=== PATIENT | female | born 1995 | race American Indian/Alaskan Native ===

== ENCOUNTER 2017-07-12 19:16 | Emergency (ER) | payer OTHER ==
[2017-07-12 20:18] VITALS: BP 102/70; PULSE 77; RESP 17; TEMP 98.5; O2SAT 100
--- NOTE | 2017-07-12 23:00 | ED PDOC ---
HPI: CCC, URI, Sore Throat Time Seen by Provider: 07/12/17 20:30 Chief Complaint (Nursing): Flu-like Symptoms Chief Complaint (Provider): Flu History Per: Patient Additional Complaint(s): Pt c/o cough, sore throat, bodyaches and fever. Pt states she's been taking thermaflu w/ no relief. Past Medical History Vital Signs: Last Vital Signs Temp 98.5 F 07/12/17 20:15 Pulse 77 07/12/17 20:15 Resp 17 07/12/17 20:15 BP 102/70 07/12/17 20:15 Pulse Ox 100 07/12/17 20:15 - Home Medications Home Medications: Ambulatory Orders Medication Instructions Recorded Ibuprofen [Motrin] 600 mg PO Q6 #20 tab 07/12/17 Oseltamivir [Tamiflu] 75 mg PO BID 5 Days cap 07/12/17 - Allergies Allergies/Adverse Reactions: Allergies Allergy/AdvReac Type Severity Reaction Status Date / Time No Known Allergies Allergy Verified 07/12/17 22:30 - ECG O2 Sat by Pulse Oximetry: 100 Disposition - Clinical Impression Clinical Impression: Influenza-like symptoms - Disposition Condition: STABLE Prescriptions: Ibuprofen [Motrin] 600 mg PO Q6 #20 tab Oseltamivir [Tamiflu] 75 mg PO BID 5 Days cap Instructions: Influenza (ED) Forms: [facility] (German), [facility] ED School/Work Excuse
== END 2017-07-12 23:23 | disposition home or self-care (01) ==
LOC: H.ER 19:16
DX: R50.9 Fever, unspecified (principal); R05 Cough

== ENCOUNTER 2017-10-26 20:54 | Emergency (ER) | payer OTHER ==
[2017-10-26] MEDS ORDERED: Albuterol-Ipratrop 3 mg / 0.5 (3 ml) UD IH STA (21:25)
[2017-10-26] MEDS ORDERED: guaiFENesin 200 mg/10 ml Syrup UD PO ONE (21:25)
[2017-10-26] MEDS ORDERED: guaiFENesin 100 mg/5 ml Syrup UD ONE (21:37)
--- NOTE | 2017-10-26 21:54 | ED PDOC ---
HPI: General Adult Time Seen by Provider: 10/26/17 21:12 Chief Complaint (Nursing): Cough, Cold, Congestion Chief Complaint (Provider): Cough, Cold, Congestion History Per: Patient History/Exam Limitations: no limitations Onset/Duration Of Symptoms: Days Additional Complaint(s): 22 year old female presents to the emergency department with a complaint of a cough that started 1 week ago. States it initially started as a dry cough and became productive. Reports symptoms started while she was on vacation in [place] and returned on Tuesday. States chest pain at the mid sternum region started on Tuesday and worsens with deep breathing. Today she tried to walk her dog but felt shortness of breath. Associated with tactile fevers at night with chills. denies nausea, vomiting, diarrhea, sick contacts, leg pain or swelling, hospitalization, surgeries, ocp use, smoking, or history of prior blood clots. Past Medical History Reviewed: Historical Data, Nursing Documentation, Vital Signs Vital Signs: Last Vital Signs Temp 98.8 F 10/26/17 21:05 Pulse 109 H 10/26/17 21:05 Resp 16 10/26/17 21:05 BP 115/76 10/26/17 21:05 Pulse Ox 97 10/26/17 22:00 - Medical History PMH: No Chronic Diseases - Surgical History Surgical History: No Surg Hx - Family History Family History: States: Unknown Family Hx - Social History Current smoker - smoking cessation education provided: No Alcohol: None Drugs: Denies - Home Medications Home Medications: Ambulatory Orders Medication Instructions Recorded Ibuprofen [Motrin] 600 mg PO Q6 #20 tab 07/12/17 Oseltamivir [Tamiflu] 75 mg PO BID 5 Days cap 07/12/17 Albuterol 0.083% [Albuterol 3 ml IH Q4 #100 neb 10/26/17 Sulfate 3 Ml] Guaifenesin [Adult Tussin Chest 200 mg PO Q6H PRN #200 ml 10/26/17 Congestion] Nebulizer [Aeroeclipse II] 1 each MC DAILY #1 each 10/26/17 - Allergies Allergies/Adverse Reactions: Allergies Allergy/AdvReac Type Severity Reaction Status Date / Time No Known Allergies Allergy Verified 10/26/17 21:05 Review of Systems ROS Statement: Except As Marked, All Systems Reviewed And Found Negative (As per HPI, otherwise negative) Constitutional: Positive for: Fever, Chills. Negative for: Other (Sick contacts , hospitalization, surgery, smoking, opiate use, or prior hx of blood clots) Cardiovascular: Positive for: Chest Pain (mid sternum region) Respiratory: Positive for: Cough, Shortness of Breath, Sputum Gastrointestinal: Negative for: Nausea, Vomiting, Diarrhea Musculoskeletal: Negative for: Leg Pain (swelling) Physical Exam - Reviewed Nursing Documentation Reviewed: Yes Vital Signs Reviewed: Yes - Physical Exam Comments: GENERAL APPEARANCE: Patient is awake, alert, oriented x 3, in no acute distress. SKIN: Warm, dry; (-) cyanosis. EYES: (-) conjunctival pallor. ENMT: Mucous membranes moist. Airway patent: (-) stridor. Pharynx: (-) swelling, (-) erythema, (-) exudate. NECK: (-) tenderness, (-) stiffness, (-) lymphadenopathy. CHEST AND RESPIRATORY: (-) rhonchi, (-) rales, (-) wheezes, (-) pleural rub; breath sounds equal bilaterally. HEART AND CARDIOVASCULAR: (-) irregularity; (-) murmur, (-) gallop. ABDOMEN AND GI: Soft; (-) tenderness. EXTREMITIES: (-) deformity; (-) edema. NEURO AND PSYCH: Mental status as above. Cranial nerves grossly intact; strength symmetric. - Laboratory Results Result Diagrams: 10/26/17 21:52 10/26/17 21:52 - ECG O2 Sat by Pulse Oximetry: 97 (RA) Pulse Ox Interpretation: Normal Medical Decision Making Medical Decision Making: Time: 2123 Initial impression: Bronchitis Initial plan:EKG CMP Troponin I Urine Preg CBC w/ diff D Dimer (COAG) PTT & Prothrombin Chest x-ray Nebulizer treatment Duoneb 3 ml IH Robitussin 200 mg PO Reevaluation EKG: NSR at 84 bpm, (-) acute ST changes, as read by MELANY. CXR: NAD, as read by MELANY Urine hCG negative Labs review : Troponin negative, d-dimer negative, white blood cell count within normal limits, rest of the labs are within normal limits. On reevaluation, patient is resting in bed comfortably in no acute distress. Patient is speaking in full sentences. Diagnostic results discussed with the patient in great detail. Diagnosis bronchitis discussed with the patient. Advised to follow up with primary care physician in 1-2 days without fail. Advised to take medication as prescribed. Return to the emergency room at any time for any new or worsening symptoms. Patient states she fully agrees with and understands discharge instructions. States that she agrees with the plan and disposition. Verbalized and repeated discharge instructions and plan. I have given the patient opportunity to ask any additional questions. Scribe Attestation: Documented by Brynn Nunez, acting as a scribe for Alka Dodson PA-C. Provider Scribe Attestation: All medical record entries made by the Scribe were at my direction and personally dictated by me. I have reviewed the chart and agree that the record accurately reflects my personal performance of the history, physical exam, medical decision making, and the department course for this patient. I have also personally directed, reviewed, and agree with the discharge instructions and disposition. Disposition - Clinical Impression Clinical Impression: Acute bronchitis - Patient ED Disposition Is Patient to be Admitted: No Counseled Patient/Family Regarding: Studies Performed, Diagnosis, Need For Followup, Rx Given - Disposition Disposition: Routine/Home Disposition Time: 23:00 Condition: STABLE Additional Instructions: Thank you for letting us take care of you today. You were treated for acute bronchitis. The emergency medical care you received today was directed at your acute symptoms. If you were prescribed any medication, please fill it and take as directed. It may take several days for your symptoms to resolve. Return to the Emergency Department if your symptoms worsen, do not improve, or if you have any other problems. Please contact your doctor in 2 days for re-evaluation and follow up. Bring any paperwork you were given at discharge with you along with any medications you are taking to your follow up visit. Our treatment cannot replace ongoing medical care by a primary care provider (PCP) outside of the emergency department. Thank you for allowing the [facility] team to be part of your care today. If you had an X-Ray : A Radiologist will review the ED reading if any change in treatment is needed we will contact you. 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
[2017-10-26 21:55] LABS: BASO % 0.5 % (0.0-2.0); EOS # 0.2 K/uL (0.0-0.7); EOS % 2.2 % (0.0-4.0); HEMOGLOBIN 12.2 g/dL (12.0-16.0); LYMPH # 1.4 K/uL (1.0-4.3); LYMPH % 15.8 % (20.0-40.0); MEAN CELL VOLUME 85.2 fl (81.0-99.0); MEAN CORPUSCULAR HGB CONC 35.2 g/dL (33.0-37.0); MEAN PLATELET VOLUME 8.8 fl (7.2-11.7); MONO # 0.7 K/uL (0.0-0.8); NEUT # 6.6 K/uL (1.8-7.0); NEUT % 73.5 % (50.0-75.0); NRBC % 0.1 % (0.0-0.0); RBC 4.09 Mil/uL (3.80-5.20); RED CELL DISTRIBUTION WIDTH 14.3 % (11.5-14.5)
[2017-10-26 22:08] LABS: INR 1.3 (0.9-1.2); PARTIAL THROMBOPLASTIN TIME 32.3 Seconds (25.6-37.1); PROTHROMBIN TIME 13.9 Seconds (9.8-13.1)
[2017-10-26 22:37] LABS: ALB/GLOB RATIO 1.1 (1.0-2.1); ALBUMIN 3.9 g/dL (3.5-5.0); ALT/SGPT 35 U/L (9-52); AST/SGOT 33 U/L (14-36); BLOOD UREA NITROGEN 7 mg/dl (7-17); CALCIUM 9.2 mg/dL (8.4-10.2); GFR AFRICAN-AMERICAN > 60; GFR NON-AFRICAN AMERICAN > 60
[2017-10-26 23:18] VITALS: BP 126/81; PULSE 88; RESP 18; TEMP 98.5; O2SAT 100
--- NOTE | 2017-10-27 07:55 | RAD ---
HISTORY: cough COMPARISON: No prior. TECHNIQUE: Chest PA and lateral FINDINGS: LUNGS: No active pulmonary disease. PLEURA: No significant pleural effusion identified. No pneumothorax apparent. CARDIOVASCULAR: Normal. OSSEOUS STRUCTURES: No significant abnormalities. VISUALIZED UPPER ABDOMEN: Normal. OTHER FINDINGS: None. IMPRESSION: No acute cardiopulmonary disease appreciated.
--- NOTE | 2017-10-27 11:56 | CARD ---
APPROVED REPORT EKG Measurement Heart [id number] <Conclusion> Normal sinus rhythm Normal ECG
== END 2017-10-26 23:18 | disposition home or self-care (01) ==
LOC: H.ER 20:54
DX: J20.9 Acute bronchitis, unspecified (principal)

== ENCOUNTER 2018-09-08 14:58 | Emergency (ER) | payer OTHER ==
[2018-09-08 15:38] VITALS: BP 100/64; PULSE 64; RESP 18; TEMP 98.2; O2SAT 100
--- NOTE | 2018-09-08 15:53 | ED PDOC ---
HPI: Abdomen Time Seen by Provider: 09/08/18 15:51 Chief Complaint (Nursing): Abdominal Pain Chief Complaint (Provider): abdominal pain History Per: Patient (23 y/o female here for evauation of generalized bloating noted 1 month. Notes intermittent abd pain associated with symptoms and came to ED for evaluation. No D/V/fevers/chills. Is vegan. ) Past Medical History Reviewed: Historical Data, Nursing Documentation, Vital Signs Vital Signs: Last Vital Signs Temp 98.2 F 09/08/18 15:36 Pulse 64 09/08/18 15:36 Resp 18 09/08/18 15:36 BP 100/64 09/08/18 15:36 Pulse Ox 100 09/08/18 15:36 - Family History Family History: States: Unknown Family Hx - Home Medications Home Medications: Ambulatory Orders Medication Instructions Recorded Ibuprofen [Motrin] 600 mg PO Q6 #20 tab 07/12/17 Oseltamivir Cap [Tamiflu] 75 mg PO BID 5 Days cap 07/12/17 Albuterol 0.083% [Albuterol 3 ml IH Q4 #100 neb 10/26/17 Sulfate 3 Ml] Guaifenesin [Adult Tussin Chest 200 mg PO Q6H PRN #200 ml 10/26/17 Congestion] Nebulizer [Aeroeclipse II] 1 each MC DAILY #1 each 10/26/17 Simethicone 125 mg PO QID PRN #28 tab.chew 09/08/18 - Allergies Allergies/Adverse Reactions: Allergies Allergy/AdvReac Type Severity Reaction Status Date / Time No Known Allergies Allergy Verified 09/08/18 15:35 Review of Systems ROS Statement: Except As Marked, All Systems Reviewed And Found Negative Gastrointestinal: Positive for: Abdominal Pain Physical Exam - Reviewed Nursing Documentation Reviewed: Yes Vital Signs Reviewed: Yes - Physical Exam Appears: Positive for: Well, Non-toxic, No Acute Distress Head Exam: Positive for: ATRAUMATIC, NORMAL INSPECTION, NORMOCEPHALIC Skin: Positive for: Normal Color, Warm, DRY Eye Exam: Positive for: EOMI, Normal appearance, PERRL ENT: Positive for: Normal ENT Inspection Neck: Positive for: Normal, Painless ROM Cardiovascular/Chest: Positive for: Regular Rate, Rhythm Respiratory: Positive for: CNT, Normal Breath Sounds Gastrointestinal/Abdominal: Positive for: Normal Exam, Soft Back: Positive for: Normal Inspection Extremity: Positive for: Normal ROM Neurological/Psych: Positive for: Awake, Alert, Normal Tone - Laboratory Results Result Diagrams: 09/08/18 16:25 09/08/18 16:25 Urine POC: Negative - ECG O2 Sat by Pulse Oximetry: 100 - Progress ED Course And Treament: obstructive series: IMPRESSION: Unremarkable radiographs of chest and abdomen. No evidence of mechanical bowel obstruction. Disposition - Clinical Impression Clinical Impression: Abdominal pain in female, Abdominal bloating - Patient ED Disposition Is Patient to be Admitted: No - Disposition Referrals: Isidro Calloway MD [Staff Provider] - Disposition: Routine/Home Disposition Time: 17:03 Condition: FAIR Prescriptions: Simethicone 125 mg PO QID PRN #28 tab.chew PRN Reason: Pain, Moderate (4-7) Instructions: Gas and Bloating Forms: [facility] ED School/Work Excuse
--- NOTE | 2018-09-08 16:51 | RAD ---
Date of service: 09/08/2018 PROCEDURE: Radiographs of the chest and abdomen (obstructive series) HISTORY: abdominal distention COMPARISON: No prior. TECHNIQUE: AP radiograph of the chest, with upright and supine radiographs of the abdomen. 3 views obtained. FINDINGS: CHEST: Lungs: Clear. Cardiovascular: Normal size heart. No pulmonary vascular congestion. No aortic atherosclerotic calcification present Pleura: No pleural fluid. No pneumothorax. Other findings: None. ABDOMEN AND PELVIS: Bowel: Unremarkable bowel gas pattern. No evidence of mechanical obstruction. Free air: None. Bones: Unremarkable. Other findings: None. IMPRESSION: Unremarkable radiographs of chest and abdomen. No evidence of mechanical bowel obstruction.
[2018-09-08 16:52] LABS: SQUAMOUS EPITHIAL 1 /hpf (0-5); URINE BILIRUBIN NEGATIVE (NEGATIVE); URINE BLOOD NEGATIVE (NEGATIVE); URINE COLOR YELLOW (YELLOW); URINE GLUCOSE (UA) NEG (NEGATIVE); URINE LEUKOCYTE ESTERASE NEG Leu/uL (Negative); URINE PROTEIN 30 mg/dL (NEGATIVE); URINE UROBILINOGEN 0.2-1.0 mg/dL (0.2-1.0)
[2018-09-08 16:53] LABS: BASO % 0.8 % (0.0-2.0); EOS # 0.1 K/uL (0.0-0.7); EOS % 2.9 % (0.0-4.0); HEMOGLOBIN 12.3 g/dL (12.0-16.0); LYMPH # 1.5 K/uL (1.0-4.3); LYMPH % 35.7 % (20.0-40.0); MEAN CELL VOLUME 85.6 fl (81.0-99.0); MEAN CORPUSCULAR HEMOGLOBIN 27.8 pg (27.0-31.0); MEAN CORPUSCULAR HGB CONC 32.5 g/dL (33.0-37.0); MEAN PLATELET VOLUME 10.1 fl (7.2-11.7); MONO # 0.4 K/uL (0.0-0.8); MONO % 8.9 % (0.0-10.0); NEUT # 2.2 K/uL (1.8-7.0); NEUT % 51.7 % (50.0-75.0); NRBC % 0.1 % (0.0-0.0); RBC 4.42 Mil/uL (3.80-5.20); RED CELL DISTRIBUTION WIDTH 15.6 % (11.5-14.5); WHITE BLOOD COUNT 4.2 K/uL (4.8-10.8)
[2018-09-08 16:56] LABS: ALB/GLOB RATIO 1.4 (1.0-2.1); ALBUMIN 4.9 g/dL (3.5-5.0); ALT/SGPT 45 U/L (9-52); AST/SGOT 95 U/L (14-36); BLOOD UREA NITROGEN 12 mg/dl (7-17); CALCIUM 9.9 mg/dL (8.4-10.2); GFR NON-AFRICAN AMERICAN > 60; LIPASE 185 U/L (23-300)
[2018-09-08 16:56] LABS: URINE CLARITY CLEAR (Clear)
== END 2018-09-08 17:32 | disposition home or self-care (01) ==
LOC: H.ER 14:58
DX: R14.0 Abdominal distension (gaseous) (principal)